=== PATIENT | female | born 1990 | race Caucasian/White ===

== ENCOUNTER 2016-10-29 15:27 | Emergency (ER) | payer SELFPAY ==
[~2016-10-29] VITALS: Ht 165.1 cm; Wt 56.7 kg
[2016-10-29] MEDS ORDERED: ONDANSETRON HCL/PF 4 MG/2 ML VIAL ONE (16:00)
[2016-10-29] MEDS ORDERED: ONDANSETRON HCL/PF 4 MG/2 ML VIAL IVP ONE (16:00)
[2016-10-29] MEDS ORDERED: IV NS 0.9% 1,000 ML ONE (16:00)
[2016-10-29] MEDS ORDERED: IV SET PRIMARY 1 EA INFUS.SET MC ONE ×2 (16:00→16:02)
[2016-10-29] MEDS ORDERED: IV NS 0.9% 1,000 ML BAG IV ONE (16:00)
[2016-10-29 16:10] LABS: CALCIUM, SERUM 8.5 mg/dL (8.5-10.1); CREATININE 0.7 mg/dL (0.6-1.3); POTASSIUM 3.9 mmol/L (3.5-5.1)
[2016-10-29 17:09] VITALS: BP 112/59
== END 2016-10-29 17:10 | disposition home or self-care (01) ==
LOC: ER 15:31
DX: R10.13 Epigastric pain (principal); R11.2 Nausea with vomiting, unspecified
CPT/HCPCS: 36415; 80048; 96361; 96374; 99284; A4606; J2405; J7030; Z7610